=== PATIENT | male | born 1935 | race Caucasian/White ===

== ENCOUNTER → 2023-09-11 | Outpatient (REF) | payer MEDICARE, SELFPAY ==
[2023-09-11 09:23] LABS: Hematocrit 22.1 % (40-54); Hemoglobin 7.1 g/dL (13.0-16.5); Mean Corp Hgb Conc 32.1 g/dL (32-36); Mean Corpuscular Volume 96.5 fL (80-94); Mean Platelet Vol. 11.6 fl (6.2-12.0); Platelet Count 324 K/mm3 (150-450); RBC Distribution Width CV 13.3 % (11.6-14.6); RBC Distribution Width SD 46.9 fl (35.1-43.9); Red Blood Count 2.29 M/mm3 (4.6-6.2)
[2023-09-11 10:20] LABS: ALB/GLOB Ratio 0.6 RATIO (0.9-2.4); AST(SGOT) 23 U/L (15-37); Alanine Aminotransfer ALT/SGPT 14 U/L (16-61); Albumin, Serum 1.7 g/dL (3.2-5.0); Alkaline Phosphatase 53 U/L (45-117); Anion Gap 6 (5-15); BUN 19 mg/dL (7-18); BUN/Creat Ratio 18.6 RATIO (10-20); Calcium,Total 9.3 mg/dL (8.5-10.1); Chloride 113 mmol/L (98-107); Creatinine, Serum 1.02 mg/dL (0.70-1.30); EST Glomerular Filtration Rate 73 mL/min (>60); Est Glom Filt Rate - Afr Amer 89 mL/min (>60); Glucose 199 mg/dL (74-106); Potassium 3.9 mmol/L (3.5-5.1); Protein, Total 4.7 g/dL (6.4-8.2); Sodium Level 142 mmol/L (136-145)
== END ==
LOC: OLS.SANC 05:34
PROVIDERS: Visit Provider Internal Medicine
DX: E11.9 Type 2 diabetes mellitus without complications (principal); I10 Essential (primary) hypertension
CPT/HCPCS: 36415; 80053; 85027

== ENCOUNTER → 2023-09-13 | Outpatient (REF) | payer MEDICARE, SELFPAY ==
[2023-09-13 07:46] LABS: Hematocrit 24.4 % (40-54); Hemoglobin 7.7 g/dL (13.0-16.5); Mean Corp Hgb Conc 31.6 g/dL (32-36); Mean Corpuscular Hgb 30.3 pg (27.0-32.0); Mean Corpuscular Volume 96.1 fL (80-94); Mean Platelet Vol. 11.3 fl (6.2-12.0); Platelet Count 373 K/mm3 (150-450); RBC Distribution Width CV 13.2 % (11.6-14.6); Red Blood Count 2.54 M/mm3 (4.6-6.2); White Blood Count 7.4 K/mm3 (4.4-11.0)
[2023-09-13 08:10] LABS: Anion Gap 6 (5-15); BUN 20 mg/dL (7-18); Calcium,Total 9.3 mg/dL (8.5-10.1); Chloride 109 mmol/L (98-107); Creatinine, Serum 1.05 mg/dL (0.70-1.30); EST Glomerular Filtration Rate 71 mL/min (>60); Est Glom Filt Rate - Afr Amer 86 mL/min (>60); Glucose 153 mg/dL (74-106); Potassium 3.8 mmol/L (3.5-5.1); Sodium Level 139 mmol/L (136-145)
== END ==
LOC: OLS.SANC 05:00
PROVIDERS: Visit Provider Internal Medicine
DX: I48.91 Unspecified atrial fibrillation (principal); I10 Essential (primary) hypertension
CPT/HCPCS: 36415; 80048; 85027